=== PATIENT | male | born 1950 | race Caucasian/White ===

== ENCOUNTER 2016-11-28 10:24 | Day surgery (SDC) | payer MEDICARE ==
[~2016-11-28] VITALS: Ht 175.3 cm; Wt 90.7 kg
[~2016-11-28 10:24] MED LIST: 0.9% Sodium Chloride 1,000 ML IV SCH; ESZO2TAB38 PO; IBUP400T22 PO; LISI10TA PO; Lactated Ringer's 1,000 ML IV SCH; Lidocaine PF 2% 5 mL Inj MUC_MEMBRM PRN; Lidocaine PF 2% 5 mL Inj MUC_MEMBRM SCH; Lidocaine Topical 2% 30 mL Jelly MUC_MEMBRM PRN; METF500T4 PO; NPR500T PO; OXYC-474 PO; fentaNYL-PF 50 mCg/mL 2 mL Inj IVPUSH PRN
[2016-11-28] MEDS ORDERED: EPINEPHrine 0.1 mg/mL 10 mL Syringe IV ONE (10:25)
[2016-11-28 10:40] VITALS: BP 128/84; PULSE 99; RESP 14; O2SAT 96
[2016-11-28] MEDS ORDERED: Lidocaine PF 2% 10 mL Inj ONE (10:52)
[2016-11-28] MEDS: Lidocaine PF 2% 5 mL Inj MUC_MEMBRM PRN ×2 (12:11→12:12)
[2016-11-28 12:15] VITALS: BP 123/77; PULSE 117; RESP 16; O2SAT 92
[2016-11-28 12:34] VITALS: BP 116/68; PULSE 110; RESP 14; O2SAT 91
[2016-11-28 12:43] VITALS: BP 102/68; PULSE 107; RESP 16; O2SAT 92
--- NOTE | 2016-11-28 13:02 | DRSVH ---
PROCEDURE: X-RAY CHEST ONE VIEW ([id number]) INDICATIONS: S/P BRONCH WITH BX R/O PNEUMO TECHNIQUE: One view of the chest was acquired. COMPARISON: [facility], CT, CT CHEST WO CON, 10/17/2015, 8:37. [facility], C R, CHEST 1VW (PORTABLE), 08/24/2013, 11:43. FINDINGS: Surgical changes and devices: Left Port-A-Cath with distal tip overlying the proximal SVC. Lungs and pleura: Unchanged appearance of right mid lobe patchy opacity. No pneumothorax. Mediastinum: Mediastinal contours appear normal. Heart size is normal. Bones and chest wall: No suspicious bony lesions. Overlying soft tissues appear unremarkable. IMPRESSION: Right mid lobe opacity. No pneumothorax. Dictated by: Brooklyn Pope M.D. on 11/28/2016 at 12:59 Approved by: Brooklyn Pope M.D. on 11/28/2016 at 13:00
--- NOTE | 2016-11-28 14:03 | ENDO ---
[address] [address] ENDOSCOPY PROCEDURE PATIENT: CORIN ROSS : 1950 MR#: [id number] ADMIT: 11/28/2016 JOB ID: [id number] PROCEDURE: Bronchoscopy with biopsy. PERFORMED BY: Shanti Negrete MD INDICATION: Right lung mass, hemoptysis. CONSENT: Informed consent was obtained from the patient after risks and benefits of the procedure were discussed. DESCRIPTION OF PROCEDURE: The patient was asked to gargle lidocaine. Additional lidocaine was administered via atomizer to the oropharynx. IV sedation was then administered and the scope was passed through the mouth. The epiglottis and vocal cords were visualized and normal in appearance. Additional lidocaine was administered here and the scope was passed through the vocal cords, into the trachea, without difficulty. Trachea was normal in appearance. Right-sided airway evaluation was done first. Right upper lobe airways were normal. Right middle lobe airway was narrowed and had blood at the orifice. There was edema surrounding the right middle lobe takeoff. In addition, there was a mass occluding the anterior segment of the right lower lobe airway, as expected from CT imaging. The mucosa appeared normal, so it is possible that this was due to extrinsic compression. The scope could not be passed past this point. Superior segment and posterior airways were open in the right lower lobe. There was no visible bleeding from this mass in the anterior segment of the right lower lobe; but, as mentioned before, there was blood at the right middle lobe orifice. Left-sided airways were then evaluated and completely normal and patent in their entirety. However, the patient coughed once while I was evaluating the left-sided airways and following this he had petechial hemorrhages appear along the left upper lobe airway. He also had blood appear at the left upper lobe takeoff after coughing without any trauma from the scope. We then proceeded to do biopsies of the mass in the right lower lobe anterior segment. We obtained about 9-10 good samples with minimal bleeding. We then tried to do some biopsies in the right middle lobe but there was not much tissue to be obtained and at this point the patient was coughing quite a bit. Since our suspicion for malignancy at the right middle lobe was quite low and we obtained good samples from the right lower lobe, we stopped the procedure at this point. FINDINGS: 1. Right middle lobe airway edema and narrowing with blood at the orifice without obvious mass. 2. Right lower lobe anterior segment mass that appeared to be extrinsic with normal mucosa and no evidence of bleeding at the site. Mass appeared to be occluding the right lower lobe anterior segment. About 8-10 biopsies were taken of this mass, with good samples obtained and sent for path. 3. Patent left-sided airways, but with hemorrhage in the left upper lobe immediately after coughing without any biopsy or scope trauma suggesting friable mucosa. COMPLICATIONS: Minimal. Bleeding less than 10 cc. Coughing throughout the procedure. SAMPLES: Right lower lobe mass occluding anterior segment; 8-10 endobronchial biopsies obtained. MEDICATIONS ADMINISTERED: Versed 5 mg, 100 mcg of fentanyl, 15 mL of lidocaine, and 4 mL of epinephrine diluted in saline. CONDITION: The patient tolerated the procedure well overall.
--- NOTE | 2016-11-29 14:41 | PATH ---
SURGICAL PATHOLOGY Attending Physician:Shanti Negrete MD CASE STATUS: Signed Out * Amended * PATIENT NAME: CORIN ROSS PID: [id number] : 1950 DATE COLLECTED:11/28/2016 19:02 SPECIMEN: Lung Biopsy CLINICAL HISTORY: 1).RIGHT LOWER LOBE BIOPSY FINAL DIAGNOSIS: 1.LUNG, RIGHT LOWER LOBE, BIOPSY:AMENDED DIAGNOSIS: FRAGMENTS OF BRONCHIAL MUCOSA, BRONCHIAL SUBMUCOSAL GLANDS, ALVEOLAR PARENCHYMA, AND CARTILAGE, SEE COMMENT. No evidence of carcinoma. ICD10 CODE D14.30 NOTE: AMENDMENT (JL) The final diagnosis is changed. 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 There is no evidence of recurrent/residual adenocarcinoma. The clinical history of metastatic pulmonary adenocarcinoma status post chemotherapy and an occlusive mass in the right lower lobe which is PET positive is noted. The biopsies show unremarkable bronchial mucosa, submucosal glands, cartilage and alveolar parenchyma. There is no necrosis or significant atypia. The differential diagnosis includes normal bronchial mucosa, including bronchial cartilage versus pulmonary chondroid hamartoma. An unsampled malignancy must also be a consideration in this setting. It is noted that a 08/18/13 PET scan describes an "8mm nodule in the superior segment of the right lower lobe demonstrating an SUV of 1.3 consistent with a benign lesion," however, radiologic and bronchoscopic correlation is necessary to determine if this correlates with the current lesion that was sampled. Because of the important clinical significance of this diagnosis, this case will be forwarded to the [facility] for consultation, including the request to further exclude a well differentiated chondroid malignancy. Dr. Azevedo discussed these changes with Dr. Shanti Negrete on 12/03/16. PREVIOUS DIAGNOSIS: COLLAGENOUS HAMARTOMA. GROSS DESCRIPTION: The specimen is received in one formalin filled container labeled with the patient's name, sublabeled "right lower lobe" and consists of multiple portions of tissue which aggregate to 0.4 x 0.4 x 0.2 CM. The specimen is entirely submitted in one cassette. 11/28/2016 DAC MICRO DESCRIPTION: See diagnosis. ICD-9 CODES: CPT CODES: 1: 57643 PROCEDURE/ADDENDA: Addendum SPI Addendum Diagnosis SLIDES SENT FOR CONSULTATION TO [facility]; REVIEWED BY TRE BEGUM MD Lung, right lower lobe, biopsy: -Fragments of hyaline cartilage, bronchial mucosa with lymphoplasmacytic inflammation, submucosal glands, and alveolar parenchyma. -Negative for carcinoma. -See Comment. COMMENT: Thank you for sending this case for consultation. The history given in the provided outside pathology report describes an 8 mm nodule with an SUV of 1.3 on PET, "consistent with a benign lesion." In this setting, the findings do raise the possibility of either pulmonary chondroma or pulmonary hamartoma, but the sampled cartilage could also represent normal bronchus wall tissue. The cartilage is well differentiated hyaline type and there are no areas showing a transition to fibromyxoid elements, entrapment of respiratory epithelium, or other mesenchymal elements which, if present, would help support hamartoma. The bronchial mucosa also shows lymphoplasmacytic inflammation which is non-specific. Overall, we suspect the cartilage represents either normal bronchial cartilage or chondroma. Specific morphologic evidence to definitively classify this as hamartoma is lacking, but this could be a sampling issue and we can' t entirely exclude that possibility. The patient' s reported history of pulmonary adenocarcinoma is noted. There is no evidence of carcinoma in this biopsy material. Further clinical and radiologic correlation is needed and if clinical suspicion for malignancy persists, repeat biopsy may be necessary for more definitive diagnosis. Dr. Jean Rojas has reviewed this case and he agrees with the interpretation. Thank you for sending this case in consultation. If I can be of any further assistance, please do not hesitate to contact me ([phone]). Please keep me informed of any relevant follow-up for this patient. Addendum Comment Please see [facility] report [id number] for complete details. Electronically Signed Out Zoraida Azevedo MD AMENDMENT(S): Amended: 12/03/2016 by Cesilia Melendrez Reason:Amended Diagnosis Previous Signout Date: 11/29/2016 Electronically Signed Out Zoraida Azevedo MD [facility] [address], [place] [address] Technical component performed at [facility], [address], [place], [address]
== END 2016-11-28 23:59 | disposition home or self-care (01) ==
LOC: END 10:24
PROVIDERS: ATTEND Internal Medicine Critical Care Medicine
DX: R91.8 Other nonspecific abnormal finding of lung field (principal); R04.2 Hemoptysis; I10 Essential (primary) hypertension; E11.9 Type 2 diabetes mellitus without complications; Z87.891 Personal history of nicotine dependence; Z79.84 Long term (current) use of oral hypoglycemic drugs; Z85.841 Personal history of malignant neoplasm of brain; Z85.118 Personal history of other malignant neoplasm of bronchus and lung
CPT/HCPCS: 31625; 71010; 99153; G0500; J0171; J2250; J3010; J7030